=== PATIENT | female | born 1955 | race Caucasian/White ===

== ENCOUNTER 2022-05-24 15:51 | Emergency (ER) | payer MEDICARE, OTHER ==
[~2022-05-24] VITALS: Ht 160 cm; Wt 49.9 kg
--- NOTE | 2022-05-24 15:55 | NUR ---
LACERATION TO BACK OF HEAD AND PAIN IN TAILBONE AREA, S/P S/F GOING DOWN THE STAIRS, -LOC. VITALS ARE WITHIN NORMAL LIMITS. NO RESPIRATORY DISTRESS NOTED.
--- NOTE | 2022-05-24 16:01 | NUR ---
TO ER BED 16 FOR EVAL
[2022-05-24] MEDS ORDERED: LET SOLN TOPICAL 8 ML UDC TP ONE ×2 (17:47→18:00)
--- NOTE | 2022-05-24 20:26 | NUR ---
PAGED ANDREW ARORA, DR DIAZ PER DR ETIENNE'S ORDER
--- NOTE | 2022-05-24 21:06 | NUR ---
RE PAGED ORTHO
--- NOTE | 2022-05-24 21:07 | NUR ---
DR SANTILLAN ON THE PHONE WITH DR FERNANDEZ FOR ORTHO CONSULT
[2022-05-24] MEDS ORDERED: NAPR-1192 PO (21:19)
[2022-05-24] MEDS ORDERED: OXYC5TAB3 PO (21:19)
--- NOTE | 2022-05-24 21:37 | NUR ---
PT WAS PROVIDED WITH A WALKER WITH INSTRUCTION OF HOW TO AMBULATE. WITH GOOD DEMONSTRATION.
--- NOTE | 2022-05-24 21:44 | NUR ---
Patient discharged to home in stable condition. Written and verbal after care instructions given. Patient verbalizes understanding of instruction.
[2022-05-24 21:45] VITALS: BP 134/78
== END 2022-05-24 21:45 | disposition home or self-care (01) ==
LOC: ER 15:58
DX: S32.10XA Unspecified fracture of sacrum, initial encounter for closed fracture (principal); S01.01XA Laceration without foreign body of scalp, initial encounter; M54.50 Low back pain, unspecified; I10 Essential (primary) hypertension; E11.9 Type 2 diabetes mellitus without complications; Z79.899 Other long term (current) drug therapy; W01.0XXA Fall on same level from slipping, tripping and stumbling without subsequent striking against object, initial encounter; Y93.89 Activity, other specified; Y92.89 Other specified places as the place of occurrence of the external cause; Y99.8 Other external cause status
CPT/HCPCS: 70450-TC; 72125-TC; 72128-TC; 72131-TC; 72192-TC